=== PATIENT | female | born 1985 | race Caucasian/White ===

== ENCOUNTER → 2018-07-22 | Outpatient (CLI) | payer OTHER | END | disposition home or self-care (01) | LOC: LABWHC1 10:35 | PROVIDERS: ATTEND Obstetrics & Gynecology | DX: N91.2 Amenorrhea, unspecified (principal) | CPT/HCPCS: 36415; 84702 ==

== ENCOUNTER 2019-02-05 12:23 | Emergency (ER) | payer OTHER ==
[2019-02-05 12:42] VITALS: RESP 16; TEMP 97.9
[2019-02-05] MEDS ORDERED: KETOROLAC 30 MG/ML 1 ML VIAL IVP STA (13:08)
[2019-02-05 13:18] LABS: Basophils # (A) 0.1 k/uL (0-0.2); Basophils % (A) 1 %; Eosinophils # (A) 0.2 k/uL (0-0.7); Eosinophils % (A) 2 %; HCT 42.7 % (34.0-46.0); HGB 15.2 gm/dL (11.4-16.0); Lymphocytes % (A) 23 %; MCH 31.2 pg (25.0-35.0); MCHC 35.6 g/dL (31.0-37.0); MCV 87.7 fL (80.0-100.0); Mean Platelet Volume 5.6; Monocytes # (A) 0.5 k/uL (0-1.0); Monocytes % (A) 5 %; Neutrophils # (A) 5.9 k/uL (1.3-7.7); Neutrophils % (A) 67 %; Platelet Count 240 k/uL (150-450); RBC 4.87 m/uL (3.80-5.40); RDW 12.1 % (11.5-15.5); WBC 8.7 k/uL (3.8-10.6)
--- NOTE | 2019-02-05 13:22 | XR ---
EXAMINATION TYPE: XR chest 2V DATE OF EXAM: 02/05/2019 COMPARISON: NONE HISTORY: Chest pain TECHNIQUE: Frontal and lateral views of the chest are obtained. FINDINGS: There is no focal air space opacity, pleural effusion, or pneumothorax seen. The cardiac silhouette size is within normal limits. The osseous structures are intact. Very minimal degenerati ve changes of the thoracic spine. IMPRESSION: No acute cardiopulmonary process.
[2019-02-05 13:28] LABS: ALT 33 U/L (9-52); AST 20 U/L (14-36); African American GFR (CKD) >90 (>60 ml/min/1.73 sqM); Albumin 3.8 g/dL (3.5-5.0); Alkaline Phosphatase 33 U/L (38-126); Anion Gap 8 mmol/L; Blood Urea Nitrogen 9 mg/dL (7-17); Calcium 8.8 mg/dL (8.4-10.2); Carbon Dioxide 27 mmol/L (22-30); Chloride 105 mmol/L (98-107); Glucose 126 mg/dL (74-99); Magnesium 1.8 mg/dL (1.6-2.3); Non-African American GFR(CKD) >90 (>60 ml/min/1.73 sqM); Potassium 3.6 mmol/L (3.5-5.1); Sodium 140 mmol/L (137-145); Total Bilirubin 0.5 mg/dL (0.2-1.3); Total Protein 6.1 g/dL (6.3-8.2)
[2019-02-05 13:40] LABS: D-Dimer 0.54 mg/L FEU (<0.60); Partial Thromboplastin Time 23.4 sec (22.0-30.0); Prothrombin Time 10.7 sec (9.0-12.0)
--- NOTE | 2019-02-05 14:16 | ED ---
Chest Pain HPI - General Chief Complaint: Chest Pain Stated Complaint: chest pain Time Seen by Provider: 02/05/19 12:50 Source: patient Mode of arrival: wheelchair Limitations: no limitations - History of Present Illness Initial Comments: The patient is a 33 old female with no past medical history who presents to the Emergency department with reported left-sided chest pain. She states that it does radiate to her left arm. It is worse with movement and deep inspiration. It is better with rest. It is reproducible upon palpation of the anterior chest wall. It started this morning. Patient denies history of cardiac disease. No family history of premature cardiac . Denies recent upper respiratory infections. No history of DVT or PE. No calf pain or flank. No recent travel or prolonged immobility. No recent surgeries or hormone use. Denies any fevers, chills or cough. No hemoptysis. Denies any chest trauma. No ripping or tearing sensation to her back. She denies any unilateral numbness or weakness. No pain into her lower extremities. No pedal edema. There are no other alleviating, precipitating or modifying factors - Related Data Previous Rx's Medication Instructions Recorded Naproxen [Naprosyn] 500 mg PO Q12HR PRN #20 tab 02/05/19 Allergies Allergy/AdvReac Type Severity Reaction Status Date / Time cyclobenzaprine AdvReac Itching Verified 02/05/19 13:58 [From Flexeril] hydrocodone AdvReac Itching Verified 02/05/19 13:58 Review of Systems ROS Statement: Those systems with pertinent positive or pertinent negative responses have been documented in the HPI. ROS Other: All systems not noted in ROS Statement are negative. EKG Findings - EKG Comments: EKG Findings:: EKG demonstrates a normal sinus rhythm with a ventricular rate of 88. CT interval 122. QRS 80. QTC 428. There are no acute ST segment elevations or depressions concerning for ischemic changes. No signs of for Parkinson White or Brugada syndrome Past Medical History Past Medical History: No Reported History History of Any Multi-Drug Resistant Organisms: None Reported Past Surgical History: No Surgical Hx Reported Past Psychological History: No Psychological Hx Reported Smoking Status: Never smoker Past Alcohol Use History: None Reported Past Drug Use History: None Reported General Exam Limitations: no limitations General appearance: alert, in no apparent distress Head exam: Present: atraumatic, normocephalic, normal inspection Eye exam: Present: normal appearance, PERRL, EOMI. Absent: scleral icterus, conjunctival injection, periorbital swelling ENT exam: Present: normal exam, mucous membranes moist Neck exam: Present: normal inspection. Absent: tenderness, meningismus, lymphadenopathy Respiratory exam: Present: normal lung sounds bilaterally, chest wall tenderness (over left anterior chest wall). Absent: respiratory distress, wheezes, rales, rhonchi, stridor Cardiovascular Exam: Present: regular rate, normal rhythm, normal heart sounds. Absent: systolic murmur, diastolic murmur, rubs, gallop, clicks GI/Abdominal exam: Present: soft, normal bowel sounds. Absent: distended, tenderness, guarding, rebound, rigid Extremities exam: Present: normal inspection, full ROM, normal capillary refill. Absent: tenderness, pedal edema, joint swelling, calf tenderness Back exam: Present: normal inspection Neurological exam: Present: alert, oriented X3, CN II-XII intact Psychiatric exam: Present: normal affect, normal mood Skin exam: Present: warm, dry, intact, normal color. Absent: rash Course Vital Signs 02/05/19 02/05/19 02/05/19 12:40 12:55 17:15 Temperature 97.9 F Pulse Rate 86 85 80 Respiratory 16 16 16 Rate Blood Pressure 106/67 114/66 136/76 O2 Sat by Pulse 97 97 99 Oximetry Chest Pain MDM - MDM Upon arrival the patient is placed into room 8. A thorough history and physical exam was performed. Peripheral IV is established. Patient given 15 g of Toradol for pain control. Laboratory studies were conducted as well as an EKG. CBC is unremarkable. D-dimer is 0.56. Her troponin was negative. Urine hCG is negative. Chest x-ray shows no acute intrathoracic process. Because of the patient's elevated d-dimer I did send her for a CT PE protocol. This demonstrates no acute process and no PE. I discussed these results the patient. She does report improvement in her pain. I do request a second troponin off of the patient's which is performed and is negative. I informed the patient that s he'll be stable for discharge at this time. She does present to the emergency room with reproducible chest pain. No signs of PE or dissection on CT. The patient needs to follow-up with her primary care physician have a full cardiac workup to include ultrasound. The patient understood this. If she has any new or worsening symptoms she should return to the emergency room. She'll be given a prescription for Naprosyn. The patient was and discharged home in stable condition Disposition Clinical Impression: Atypical chest pain Disposition: HOME SELF-CARE Condition: Stable Instructions (If sedation given, give patient instructions): Chest Pain (ED) Additional Instructions: Please follow-up with your primary care doctor in 2-4 days. Return to the emergency room for any new or worsening symptoms. You should have an echo of your heart performed Prescriptions: Naproxen [Naprosyn] 500 mg PO Q12HR PRN #20 tab PRN Reason: Pain Is patient prescribed a controlled substance at d/c from ED?: No Referrals: None,Stated [Primary Care Provider] - 1-2 days Time of Disposition: 17:07
--- NOTE | 2019-02-05 16:43 | CT ---
EXAMINATION TYPE: CT chest angio for PE DATE OF EXAM: 02/05/2019 COMPARISON: None HISTORY: Left sided chest pain CT DLP: 271.5 mGycm Automated exposure control for dose reduction was used. CONTRAST: CT Chest for pulmonary embolism performed with with IV Contrast, patient injected with 100 mL of Isov ue 370. FINDINGS: There are 3-D post processed images. The lungs are clear of infiltrate. There is no pleural effusion or pneumothorax. Heart size is normal . There is no pericardial effusion. There are no hilar masses. There is no mediastinal adenopathy. Th oracic aorta appears normal. There is no sign of aneurysm or dissection. There is normal contrast opacification of the pulmonary arteries. I see no filling defect. Bony thora x appears intact. Upper abdominal soft tissues are unremarkable. IMPRESSION: Normal exam. No evidence of pulmonary embolism.
[2019-02-05 17:16] VITALS: BP 136/76; PULSE 80
== END 2019-02-05 17:18 | disposition home or self-care (01) ==
LOC: EC 12:23
DX: R07.89 Other chest pain (principal); Z88.5 Allergy status to narcotic agent; Z88.8 Allergy status to other drugs, medicaments and biological substances
CPT/HCPCS: 36415; 93005; 85379; 80053; 83735; 84484; 85025; 85610; 85730; 81025; 71046; 71275; 99285; 96374; J1885; Q9967

== ENCOUNTER → 2019-06-23 | Outpatient (CLI) | payer OTHER | END | disposition home or self-care (01) | LOC: LABWHC1 09:30 | PROVIDERS: ATTEND Obstetrics & Gynecology | DX: N91.2 Amenorrhea, unspecified (principal) | CPT/HCPCS: 36415; 84702 ==

== ENCOUNTER → 2020-12-05 | Outpatient (CLI) | payer OTHER | END | disposition home or self-care (01) | LOC: LABWHC1 12:34 | PROVIDERS: ATTEND Obstetrics & Gynecology | DX: N92.6 Irregular menstruation, unspecified (principal) | CPT/HCPCS: 36415; 84702 ==

== ENCOUNTER 2021-01-28 11:34 | Emergency (ER) | payer OTHER ==
[2021-01-28 12:19] VITALS: BP 107/71; PULSE 107; RESP 18; TEMP 99.3
--- NOTE | 2021-01-28 12:40 | ED ---
URI HPI - General Chief Complaint: Upper Respiratory Infection Stated Complaint: covid symptoms Time Seen by Provider: 01/28/21 11:40 Source: patient, RN notes reviewed Mode of arrival: ambulatory Limitations: no limitations - History of Present Illness Initial Comments: This a 35-year-old female presents emergency Department chief complaint cough congestion. Patient states symptoms started over the weekend. Patient denies any known fever but has felt hot and cold. She has runny nose, sore throat, cough mild headache. Every in the household has similar symptoms. - Related Data Previous Rx's Medication Instructions Recorded Naproxen [Naprosyn] 500 mg PO Q12HR PRN #20 tab 02/05/19 Allergies Allergy/AdvReac Type Severity Reaction Status Date / Time cyclobenzaprine AdvReac Itching Verified 01/28/21 12:14 [From Flexeril] hydrocodone AdvReac Itching Verified 01/28/21 12:14 Review of Systems ROS Statement: Those systems with pertinent positive or pertinent negative responses have been documented in the HPI. ROS Other: All systems not noted in ROS Statement are negative. Past Medical History Past Medical History: No Reported History History of Any Multi-Drug Resistant Organisms: None Reported Past Surgical History: No Surgical Hx Reported Past Psychological History: No Psychological Hx Reported Smoking Status: Never smoker Past Alcohol Use History: None Reported Past Drug Use History: None Reported General Exam Limitations: no limitations General appearance: alert, in no apparent distress Head exam: Present: atraumatic, normocephalic, normal inspection Eye exam: Present: normal appearance, PERRL, EOMI. Absent: scleral icterus, conjunctival injection, periorbital swelling ENT exam: Present: normal exam, normal oropharynx, mucous membranes moist Neck exam: Present: normal inspection, full ROM. Absent: tenderness, meningismus, lymphadenopathy Respiratory exam: Present: normal lung sounds bilaterally. Absent: respiratory distress, wheezes, rales, rhonchi, stridor Cardiovascular Exam: Present: regular rate, normal rhythm, normal heart sounds. Absent: systolic murmur, diastolic murmur, rubs, gallop, clicks GI/Abdominal exam: Present: soft, normal bowel sounds. Absent: distended, tenderness, guarding, rebound, rigid Neurological exam: Present: alert Skin exam: Present: warm, dry, intact, normal color. Absent: rash Course Vital Signs 01/28/21 12:12 Temperature 99.3 F Pulse Rate 107 H Respiratory 18 Rate Blood Pressure 107/71 O2 Sat by Pulse 97 Oximetry Medical Decision Making - Medical Decision Making Patient is positive for COVID-19. Patient discharged in stable condition return parameters were discussed. - Lab Data Lab Results 01/28/21 Range/Units 12:04 SARS-CoV-2 (PCR) Detected A (Not Detectd) Disposition Clinical Impression: COVID-19 Disposition: HOME SELF-CARE Condition: Stable Instructions (If sedation given, give patient instructions): Coronavirus Disease 2019 (COVID-19) Additional Instructions: Please return to the Emergency Department if symptoms worsen or any other concerns. Is patient prescribed a controlled substance at d/c from ED?: No Referrals: None,Stated [Primary Care Provider] - 1-2 days Time of Disposition: 13:35
== END 2021-01-28 14:12 | disposition home or self-care (01) ==
LOC: EC 11:34
DX: U07.1 COVID-19 (principal)
CPT/HCPCS: 87635; 99284

== ENCOUNTER → 2021-06-26 | Outpatient (CLI) | payer OTHER | END | disposition home or self-care (01) | LOC: LABWHC1 14:58 | PROVIDERS: ATTEND Obstetrics & Gynecology | DX: N91.2 Amenorrhea, unspecified (principal) | CPT/HCPCS: 36415; 84702 ==

== ENCOUNTER 2021-08-16 10:08 | Emergency (ER) | payer OTHER ==
[2021-08-16 10:15] VITALS: RESP 18
[2021-08-16] MEDS ORDERED: predniSONE 50 MG TAB PO STA (10:32)
[2021-08-16] MEDS ORDERED: diphenhydrAMINE 50 MG CAP PO STA (10:32)
[2021-08-16] MEDS ORDERED: FAMOTIDINE 20 MG TAB PO STA (10:33)
--- NOTE | 2021-08-16 10:52 | ED ---
General Adult HPI - General Chief complaint: Skin/Abscess/Foreign Body Stated complaint: Rash Time Seen by Provider: 08/16/21 10:20 Source: patient Mode of arrival: ambulatory Limitations: no limitations - History of Present Illness Initial comments: This 35-year-old female presents emergency Department with itching and rash on body for the last month. Patient states her and her family has been experiencing itching of her body which seems to be worse at night for the last month. Patient states she gets small red bumps diffusely spread on her body that come and go. Patient states she first noticed it on her abdomen and states that resolved, however she has also had small red itchy bumps on her back, forearms and thighs. Patient states she did go to urgent care and was given hydroxyzine which she states has not helped very much. She states urgent care also gave her permethrin cream for possible scabies which she still does have at home. Patient states she then followed up with her primary care provider who gave her medication for rosacea. Patient states she has taken Benadryl couple of times which she doesn't think it helped much. Patient states she is unsure if her family may have lice as there was small little clear ovals on the shaft of her daughter's hair when she looked a few days ago. Patient states she sometimes gets a little bit of tickling in her throat that resolves after she takes a drink or swallows. She denies seeing any bugs in her bed. She denies any recent change in laundry detergent, soaps/shampoos, lotions. Patient denies any trouble breathing or swallowing. She denies any chest pain, fever, shortness of breath, abdominal pain, nausea, vomiting, fever, change in vision, headache, lightheadedness, dizziness. - Related Data Home Medications Medication Instructions Recorded Confirmed Medroxyprogesterone Acetate 150 mg IM Q90D 08/16/21 08/16/21 [Depo-Provera] Previous Rx's Medication Instructions Recorded Hydrocortisone Cream 1 applic TOPICAL BID #28 gm 08/16/21 [Hydrocortisone 2.5% Cream] Allergies Allergy/AdvReac Type Severity Reaction Status Date / Time cyclobenzaprine AdvReac Itching Verified 08/16/21 10:57 [From Flexeril] hydrocodone AdvReac Itching Verified 08/16/21 10:57 Review of Systems ROS Statement: Those systems with pertinent positive or pertinent negative responses have been documented in the HPI. ROS Other: All systems not noted in ROS Statement are negative. Past Medical History Past Medical History: No Reported History History of Any Multi-Drug Resistant Organisms: None Reported Past Surgical History: No Surgical Hx Reported Past Psychological History: No Psychological Hx Reported Smoking Status: Never smoker Past Alcohol Use History: None Reported Past Drug Use History: None Reported General Exam Limitations: no limitations General appearance: alert, in no apparent distress Head exam: Present: atraumatic, normocephalic, normal inspection Eye exam: Present: normal appearance, PERRL, EOMI. Absent: scleral icterus, conjunctival injection, periorbital swelling ENT exam: Present: normal exam, normal oropharynx, mucous membranes moist, other (Uvula midline. No tonsillar abscess visualized. No erythema or tonsillar exudates noted) Neck exam: Present: normal inspection. Absent: tenderness, meningismus, lymphadenopathy Respiratory exam: Present: normal lung sounds bilaterally. Absent: respiratory distress, wheezes, rales, rhonchi, stridor, chest wall tenderness Cardiovascular Exam: Present: regular rate, normal rhythm, normal heart sounds. Absent: systolic murmur, diastolic murmur, rubs, gallop, clicks GI/Abdominal exam: Present: soft, normal bowel sounds. Absent: distended, tenderness, guarding, rebound, rigid Extremities exam: Present: normal inspection, full ROM, normal capillary refill. Absent: tenderness, pedal edema, joint swelling, calf tenderness Back exam: Present: full ROM, other (Diffuse small erythematous raised bumps the patient did scratch ). Absent: CVA tenderness (R), CVA tenderness (L) Neurological exam: Present: alert, oriented X3, CN II-XII intact Psychiatric exam: Present: normal affect, normal mood Skin exam: Present: warm, dry, intact, normal color, rash (Diffuse erythematous raised bumps. A few noted on right chest, left forearm, mid back. Patient states they do itch). Absent: vesicles, petechiae, pallor, abrasion Course Vital Signs 08/16/21 10:13 Temperature 97.7 F Pulse Rate 111 H Respiratory 18 Rate Blood Pressure 117/75 O2 Sat by Pulse 98 Oximetry Medical Decision Making - Medical Decision Making This 35-year-old female presents emergency department with itching on her body along with a rash that comes and goes in different areas of her body. Hydrocortisone cream given to patient. Dermatology referral given. I instructed her to call them in the next 1-2 days. Patient given Pepcid, Benadryl and steroid in the emergency department which she states did slightly help with her itching. Instructed patient to follow-up with her primary care provider next 1-2 days. Strict return precautions were discussed. Patient related to plan. Patient sent home in stable condition. Case discussed in detail with the attending, . Disposition Clinical Impression: Dermatitis, Allergic reaction Disposition: HOME SELF-CARE Condition: Stable Instructions (If sedation given, give patient instructions): General Allergic Reaction (ED) Additional Instructions: Please apply hydrocortisone cream on affected area on arms, thigh and right chest wall 2 times a day 7 days. Please follow-up with [facility] in next 1-2 days. Follow-up with your primary care provider in next 1-2 days. Return to the emergency department with any new, worsening or concerning symptoms. Prescriptions: Hydrocortisone Cream [Hydrocortisone 2.5% Cream] 1 applic TOPICAL BID #28 gm Is patient prescribed a controlled substance at d/c from ED?: No Referrals: Pradeep Toro MD [Primary Care Provider] - 1-2 days Samira Richmond MD [STAFF PHYSICIAN] - 1-2 days Nikunj Richmond MD [STAFF PHYSICIAN] - 1-2 days Time of Disposition: 11:24
[2021-08-16 11:35] VITALS: BP 128/78; PULSE 74; TEMP 98.2
== END 2021-08-16 11:34 | disposition home or self-care (01) ==
LOC: EC 10:08
DX: L30.9 Dermatitis, unspecified (principal); T78.40XA Allergy, unspecified, initial encounter
CPT/HCPCS: 99282; J7512

== ENCOUNTER 2024-09-03 17:38 | Emergency (ER) | payer OTHER ==
[2024-09-03] MEDS: HYDROcodone/APAP 5-325MG 1 EACH TAB PO STA (18:48)
[2024-09-03] MEDS: LIDOCAINE 4% PATCH TOPICAL STA (18:49)
[2024-09-03] MEDS: KETOROLAC 15 MG/ML 1 ML VIAL IM STA (18:49)
[2024-09-03] MEDS: methylPREDNISolone SOD SUCCI 125 MG/2 ML VIAL IM ONE (18:49)
--- NOTE | 2024-09-03 19:19 | XR ---
EXAMINATION TYPE: XR lumbar spine 2 or 3V DATE OF EXAM: 09/03/2024 7:00 PM COMPARISON: None CLINICAL INDICATION: Female, 38 years old with history of back pain; PHH, pain TECHNIQUE: XR lumbar spine 2 or 3V - Frontal, lateral and coned in L5-S1 lateral views of the spine. FINDINGS: No evidence of any acute osseous pathology. No evidence of loss of vertebral body height i s seen. There is normal alignment of the lumbar vertebral bodies. Minimal marginal osteophyte formati on throughout the visualized spine. There is facet joint arthropathy throughout the spine. Scattered at least mild neural foraminal stenosis. IMPRESSION: 1. No acute fracture. 2. Mild multilevel disc degeneration. [facility], , 09/03/2024 7:16 PM
--- NOTE | 2024-09-03 19:34 | ED ---
General Adult HPI - General Chief complaint: Back Pain/Injury Stated complaint: back pain Time Seen by Provider: 09/03/24 18:20 Source: patient, RN notes reviewed, old records reviewed Mode of arrival: ambulatory Limitations: no limitations - History of Present Illness Initial comments: Patient is a 38-year-old female who presents emergency department complaining back pain. History of sciatica. States this is similar to previous pain. No new traumatic injury that is obvious or obvious acute injury. Has noticed that for the last few days it is slowly gotten worse and now is more unbearable. Tylenol Motrin not controlling the pain. States it is located the right side of her lower spine with radiation into her right buttock and down the back of her right leg. Some radiation up the right sided paraspinal muscles as well. Denies any saddle paresthesias. Denies any urinary or bowel incontinence or retention. Denies any paralysis of the lower extremities. Presents for further evaluation at this time. Once again no obvious acute injuries. - Related Data Home Medications Medication Instructions Recorded Confirmed Medroxyprogesterone Acetate 150 mg IM Q90D 08/16/21 08/16/21 [Depo-Provera] Previous Rx's Medication Instructions Recorded Hydrocortisone Cream 1 applic TOPICAL BID #28 gm 08/16/21 [Hydrocortisone 2.5% Cream] methocarbamoL [Robaxin-750] 750 mg PO TID PRN 5 Days #15 tab 09/03/24 Allergies Allergy/AdvReac Type Severity Reaction Status Date / Time cyclobenzaprine AdvReac Itching Verified 08/16/21 10:57 [From Flexeril] hydrocodone AdvReac Itching Verified 08/16/21 10:57 Review of Systems ROS Statement: Those systems with pertinent positive or pertinent negative responses have been documented in the HPI. Review of Systems: CONST: Denies fever EYES: Denies blurry vision ENT: Denies nasal congestion C/V: Denies Chest pain RESP: Denies shortness of breath GI: Denies abdominal pain : Denies dysuria SKIN: Denies rash. MSK: Endorses back pain NEURO: Denies headache ROS Other: All systems not noted in ROS Statement are negative. Past Medical History Past Medical History: No Reported History History of Any Multi-Drug Resistant Organisms: None Reported Past Surgical History: No Surgical Hx Reported Past Psychological History: No Psychological Hx Reported Smoking Status: Never smoker Past Alcohol Use History: None Reported Past Drug Use History: None Reported General Exam - General Exam Comments Initial Comments: General: Appears in no acute distress. HEAD: Normal with no signs of head trauma. EYES: EOMI. ENT: Hearing grossly intact. RESPIRATORY: No respiratory distress. C/V: Regular rate and rhythm. ABD: Abdomen is nondistended. EXT: Some right-sided paraspinal muscle tenderness to palpation of the lower lumbar spine. No obvious deformity or step-offs appreciated the lumbar spine, thoracic spine, cervical spine. Minimal midline lower lumbar spine tenderness to palpation. Neurovasc intact throughout SKIN: No rashes or lesions observed on exposed skin. NEURO: Alert and oriented. No obvious focal deficits. Limitations: no limitations Course Vital Signs 09/03/24 09/03/24 17:58 19:49 Temperature 98.1 F 98.2 F Pulse Rate 56 L 72 Respiratory 18 16 Rate Blood Pressure 116/71 120/75 O2 Sat by Pulse 100 98 Oximetry Medical Decision Making - Medical Decision Making Was pt. sent in by a medical professional or institution (Dr. PA, [employer], urgent care, hospital, or halfway...) When possible be specific @ -No Did you speak to anyone other than the patient for history (EMS, parent, family, police, friend...)? What history was obtained from this source @ -No Did you review nursing and triage notes (agree or disagree)? Why? @ -I reviewed and agree with nursing and triage notes Were old charts reviewed (outside hosp., previous admission, EMS record, old EKG, old radiological studies, urgent care reports/EKG's, halfway records)? Report findings @ -No old charts were reviewed Differential Diagnosis (chest pain, altered mental status, abdominal pain women, abdominal pain men, vaginal bleeding, weakness, fever, dyspnea, syncope, headache, dizziness, GI bleed, back pain, seizure, CVA, palpatations, mental health, musculoskeletal)? @ -Sciatica, lumbar strain, chronic back pain. This list is not all inclusive. EKG interpreted by me (3pts min.). @ -None none X-rays interpreted by me (1pt min.). @ -Lumbar spine x-ray negative for any obvious acute traumatic injury. Patient has multilevel disc degeneration. CT interpreted by me (1pt min.). @ -None done U/S interpreted by me (1pt. min.). @ -None done What testing was considered but not performed or refused? (CT, X-rays, U/S, labs)? Why? @ -None What meds were considered but not given or refused? Why? @ -None Did you discuss the management of the patient with other professionals (professionals i.e. , PA, [employer], lab, RT, psych nurse, social services specialist, family lawyer, teacher, soil science technical officer, correctional case manager)? Give summary @ -No Was smoking cessation discussed for >3mins.? @ -No Was critical care preformed (if so, how long)? @ -No Were there social determinants of health that impacted care today? How? (Homelessness, low income, unemployed, alcoholism, drug addiction, transportation, low edu. Level, literacy, decrease access to med. care, alf, rehab)? @ -No Was there de-escalation of care discussed even if they declined (Discuss DNR or withdrawal of care, Hospice)? DNR status @ -No What co-morbidities impacted this encounter? (DM, HTN, Smoking, COPD, CAD, Cancer, CVA, ARF, Chemo, Hep., AIDS, mental health diagnosis, sleep apnea, morbid obesity)? @ -None Was patient admitted / discharged? Hospital course, mention meds given and route , prescriptions, significant lab abnormalities, going to OR and other pertinent info. @ -Patient presents with acute on chronic sciatica back pain. We will obtain x-ray as well as provide the patient with symptomatic relief. No concern for cauda equina syndrome. No red flag symptoms. She was in agreement this plan. She is given IM Solu-Medrol, Toradol as well as a dose of [place] and lidocaine patch. Vitals within acceptable limits. X-ray shows degenerative disc disease without traumatic injury. On reevaluation, patient does feel improved. We discussed her results. She will be discharged home at this time. Recommend follow-up with orthopedics as needed if pain persist. She was in agreement this plan. Given a Tylenol 3 starter pack for home as well as a prescription for muscle relaxer. I instructed the patient to follow up with their PCP in the next 1-3 days. I explained that the patient should return to the emergency department if they experience any worsening symptoms. Strict return precautions were discussed with the patient. The patient expressed understanding of these instructions. I answered all questions that the patient had. The patient was discharged home in good condition with their prescriptions and follow up information. Undiagnosed new problem with uncertain prognosis? @ -No Drug Therapy requiring intensive monitoring for toxicity (Heparin, Nitro, Ins ulin, Cardizem)? @ -No Were any procedures done? @ -No Diagnosis/symptom? @ -Back pain, chronic. Sciatica Acute, or Chronic, or Acute on Chronic? @ -Acute on chronic Uncomplicated (without systemic symptoms) or Complicated (systemic symptoms)? @ -Uncomplicated Side effects of treatment? @ -No Exacerbation, Progression, or Severe Exacerbation? @ -No Poses a threat to life or bodily function? How? (Chest pain, [place], [place], pneumonia, PE, COPD, DKA, ARF, appy, cholecystitis, CVA, Diverticulitis, Homicidal, Suicidal, threat to staff... and all critical care pts) @ -Unlikely at this time Disposition Clinical Impression: Sciatica, Back pain, chronic Disposition: HOME SELF-CARE Condition: Good Instructions (If sedation given, give patient instructions): Sciatica (ED) Prescriptions: methocarbamoL [Robaxin-750] 750 mg PO TID PRN 5 Days #15 tab PRN Reason: Pain Is patient prescribed a controlled substance at d/c from ED?: Yes When asked, does pt state using other controlled substances?: No If prescribed controlled substance>3 days was MAPS reviewed?: Prescribed <3 Days If opioid is for acute pain is fill amount 7 days or less?: Yes If Rx opioid, was Start Talking consent form obtained?: Yes Referrals: None,Stated [Primary Care Provider] - 1-2 days Mario Burgess MD [Medical Doctor] - 1-2 days Forms: Area PCPs Time of Disposition: 19:30
[2024-09-03] MEDS: ACET/COD 300 MG/30 MG STARTER PACK 6 TAB BTL PO STA (19:46)
[2024-09-03 20:01] VITALS: BP 120/75; PULSE 72; RESP 16; TEMP 98.2
== END 2024-09-03 19:49 | disposition home or self-care (01) ==
LOC: EC 17:38
DX: G89.29 Other chronic pain (principal); M54.31 Sciatica, right side; Z88.5 Allergy status to narcotic agent; Z88.8 Allergy status to other drugs, medicaments and biological substances
CPT/HCPCS: 72100; 99283; 96372 ×2; J1885; J2919